=== PATIENT | female | born 1965 | race African-American/Black ===

== ENCOUNTER → 2023-03-26 16:46 | Outpatient (REF) | payer OTHER, SELFPAY | LOC: WDC 16:46 | PROVIDERS: ATTENDING PHYSICIAN Family Medicine | DX: Z12.31 Encounter for screening mammogram for malignant neoplasm of breast (principal) | CPT/HCPCS: 77063; 77067 ==

== ENCOUNTER → 2023-04-09 08:37 | Outpatient (REF) | payer OTHER, SELFPAY ==
[2023-04-09 09:14] LABS: % Basophils 0.5 % (0-2); % Eosinophils 3.8 % (0-6); % Immature Granulocytes 0.3 % (0-0.5); % Lymphocytes 18.7 % (20.5-51.1); % Monocytes 11.5 % (1.7-9.3); % Neutrophils 65.2 % (42.2-75.2); Absolute Eosinophils 0.2 10^3/uL (0-0.7); Absolute Lymphocytes 0.7 10^3/uL (1.2-3.4); Absolute Monocytes 0.5 10^3/uL (0.1-0.6); Absolute Neutrophils 2.5 10^3/uL (1.4-6.5); Hematocrit 33.6 % (37.0-47.0); Hemoglobin 10.8 g/dL (12.0-16.0); Mean Corp Hgb Conc. 32.1 g/dL (33.0-37.0); Mean Corpuscular Hgb 26.8 pg (27.0-31.0); Mean Corpuscular Volume 83.4 fL (81.0-99.0); Mean Platelet Volume 9.9 fL (7.4-10.4); Nucleated Red Blood Cells % 0 %; Platelet Count 213 10^3/uL (130-400); Red Blood Cell Count 4.03 10^6/uL (4.20-5.40); Red Cell Dist. Width 14.4 % (11.5-14.5); White Blood Cell Count 3.9 10^3/uL (4.8-10.8)
[2023-04-09 09:26] LABS: INR 0.95; PT 12.7 Sec (11.4-14.6)
[2023-04-09 09:27] LABS: APTT 25.8 Sec (23.4-35.0)
[2023-04-09 10:24] LABS: Blood Urea Nitrogen 15 mg/dl (7-17); Calcium 9.9 mg/dl (8.4-10.2); Carbon Dioxide 29 mmol/L (22-30); Chloride 101 mmol/L (98-107); Glucose 96 mg/dl (70-99); Sodium 138 mmol/L (135-145); eGFR > 60.00
[2023-04-09 13:02] LABS: Glycohemoglobin (HgbA1c) 5.8 % (4.0-5.6)
== END ==
LOC: REG 08:37
PROVIDERS: ATTENDING PHYSICIAN Orthopaedic Surgery Sports Medicine; FAMILY PHYSICIAN Family Medicine
DX: M17.12 Unilateral primary osteoarthritis, left knee (principal); Z01.818 Encounter for other preprocedural examination; R79.1 Abnormal coagulation profile; R73.09 Other abnormal glucose
CPT/HCPCS: 80048; 83036; 85025; 85610; 85730; 93005

== ENCOUNTER → 2023-10-30 08:37 | Outpatient (REF) | payer OTHER, SELFPAY ==
[2023-10-30 08:52] VITALS: BP 136/91; BP_SYST 77
[2023-10-30 09:59] VITALS: BP 119/75
== END ==
LOC: RADI 08:37
PROVIDERS: ATTENDING PHYSICIAN Internal Medicine
DX: Z45.2 Encounter for adjustment and management of vascular access device (principal)
CPT/HCPCS: 36590; 77001

== ENCOUNTER → 2024-02-02 16:58 | Outpatient (REF) | payer OTHER, SELFPAY | LOC: RAD 16:58 | PROVIDERS: ATTENDING PHYSICIAN Student in an Organized Health Care Education/Training Program; FAMILY PHYSICIAN Family Medicine | DX: E03.9 Hypothyroidism, unspecified (principal); E55.9 Vitamin D deficiency, unspecified; I27.20 Pulmonary hypertension, unspecified; I51.7 Cardiomegaly; I73.00 Raynaud's syndrome without gangrene; J98.4 Other disorders of lung; M35.9 Systemic involvement of connective tissue, unspecified; M89.8X1 Other specified disorders of bone, shoulder; R76.8 Other specified abnormal immunological findings in serum; Z79.899 Other long term (current) drug therapy | CPT/HCPCS: 73120 ==

== ENCOUNTER → 2024-08-03 13:21 | Outpatient (REF) | payer OTHER, SELFPAY | LOC: WDC 13:21 | PROVIDERS: ATTENDING PHYSICIAN Family Medicine | DX: Z12.31 Encounter for screening mammogram for malignant neoplasm of breast (principal) | CPT/HCPCS: 77063; 77067 ==

== ENCOUNTER → 2024-10-12 07:41 | Outpatient (REF) | payer OTHER, SELFPAY | LOC: RSP 07:41 | PROVIDERS: ATTENDING PHYSICIAN Internal Medicine Rheumatology; FAMILY PHYSICIAN Family Medicine | DX: I73.00 Raynaud's syndrome without gangrene (principal); I27.20 Pulmonary hypertension, unspecified | CPT/HCPCS: 94010; 94727; 94729 ==

== ENCOUNTER → 2024-10-26 16:18 | Outpatient (REF) | payer OTHER, SELFPAY | LOC: RAD 16:18 | PROVIDERS: ATTENDING PHYSICIAN Family Medicine | DX: R51.9 Headache, unspecified (principal) | CPT/HCPCS: 70450 ==